=== PATIENT | male | born 1950 | race Two or more races ===

== ENCOUNTER 2017-02-11 10:22 | Inpatient (IN) | payer MEDICARE, BC ==
[~2017-02-11] VITALS: Ht 172.7 cm; Wt 95.6 kg
[2017-02-11] MEDS ORDERED: MORPHINE SULFATE 4 MG/ML, 1ML IVPush PRN (11:00)
[2017-02-11] MEDS ORDERED: SODIUM CHLORIDE FLUSH 10ML SYR IVF ONE (11:00)
[2017-02-11] MEDS ORDERED: ONDANSETRON 2MG/ML, 2ML IVPush ONE (11:00)
[2017-02-11 11:56] LABS: HEMATOCRIT 46.3 % (39.2-51.8); HEMOGLOBIN 15.9 g/dL (13.7-18.0)
[2017-02-11 12:09] LABS: BLOOD UREA NITROGEN 10 mg/dL (7-18)
[2017-02-11 12:13] LABS: IS PT STATUS REG ER OR PRE ER? YES
[2017-02-11] MEDS ORDERED: SIMV5TAB5 PO (14:29)
[2017-02-11] MEDS ORDERED: ASPI-496 PO (14:29)
[2017-02-11] MEDS ORDERED: ENALAPRILAT 1.25 MG/ML, 2ML IVPush PRN (14:30)
[2017-02-11] MEDS ORDERED: HYDROcodone/APAP 5/325 TABLET PO PRN (14:30)
[2017-02-11] MEDS ORDERED: ONDANSETRON 2MG/ML, 2ML IVPush PRN (14:30)
[2017-02-11] MEDS ORDERED: NITROGLYCERIN 0.4 MG BOTTLE (25 TABS) SL PRN (14:30)
[2017-02-11] MEDS ORDERED: hydrALAzine 20 MG/ML, 1ML IVPush PRN (14:30)
[2017-02-11] MEDS ORDERED: ACETAMINOPHEN 325 MG TABLET PO PRN (14:30)
[2017-02-11] MEDS ORDERED: morphine SULFATE 10 MG/ML, 1ML IVPush PRN (14:30)
[2017-02-11] MEDS ORDERED: PRAV80TA2 PO (14:48)
[2017-02-11] MEDS ORDERED: METO25TA35 PO (14:48)
[2017-02-11] MEDS ORDERED: SODIUM CHLORIDE FLUSH 10ML SYR IVF PRN (15:00)
[2017-02-11 15:41] VITALS: BP 168/91
[2017-02-11 16:30] LABS: IS PT STATUS REG ER OR PRE ER? NO
[2017-02-11 20:21] VITALS: BP 127/66
[2017-02-11 20:31] LABS: IS PT STATUS REG ER OR PRE ER? NO
[2017-02-12 02:05] VITALS: BP 116/73
[2017-02-12 05:46] LABS: BLOOD UREA NITROGEN 11 mg/dL (7-18)
[2017-02-12] MEDS ORDERED: ASPIRIN 325 MG TABLET EC PO SCH (06:00)
[2017-02-12 07:20] LABS: HEMATOCRIT 45.4 % (39.2-51.8); HEMOGLOBIN 15.5 g/dL (13.7-18.0); WHITE BLOOD COUNT 4.9 x10^3/uL (3.4-10)
[2017-02-12] MEDS ORDERED: REGADENOSON 0.4 MG/5 ML SYRINGE ONE (07:30)
[2017-02-12 11:10] VITALS: BP 155/96
[2017-02-12] MEDS ORDERED: PRAVASTATIN 40 MG TABLET PO SCH (21:00)
[2017-02-13] MEDS ORDERED: METOPROLOL TARTRATE 25 MG TABLET PO SCH (09:00)
[2017-02-13] MEDS ORDERED: ASPIRIN 81 MG TABLET EC PO SCH (09:00)
== END 2017-02-12 13:45 | disposition home or self-care (01) | DRG 313 ==
LOC: ED 11:39 → EDIP 14:31 → 5SO 15:43
PROVIDERS: ADMIT Internal Medicine; ATTEND Internal Medicine
DX: R07.9 Chest pain, unspecified (principal); I25.10 Atherosclerotic heart disease of native coronary artery without angina pectoris; K50.90 Crohn's disease, unspecified, without complications; D75.89 Other specified diseases of blood and blood-forming organs; I10 Essential (primary) hypertension; R00.1 Bradycardia, unspecified; Z79.82 Long term (current) use of aspirin; Z87.891 Personal history of nicotine dependence; Z91.19 Patient's noncompliance with other medical treatment and regimen; Z95.1 Presence of aortocoronary bypass graft; Z82.49 Family history of ischemic heart disease and other diseases of the circulatory system
CPT/HCPCS: 36415; 71010; 78452; 80048; 80061; 82040; 83735; 83880; 84443; 84484; 85025; 93005; 93017; 93306; J2785; A9502; C9898